=== PATIENT | female | born 2000 | race Caucasian/White ===

== ENCOUNTER 2024-07-19 12:06 | Emergency (ER) | payer OTHER ==
--- NOTE | 2024-07-19 12:21 | ERPHSYRPT ---
- History of Present Illness Time Seen by Provider: 07/19/24 12:21 Source: patient, family Exam Limitations: no limitations Physician History: There is a 24-year-old white female patient who woke up this morning with left eye redness itching and matted material on her eyelids. Patient has no known exposure to viral illnesses. She has not had a fever. She denies pain or injury to that eye. Timing/Duration: today Location: left eye Severity: mild Apparent Injury: no Associated Symptoms: itching, redness, matting, No sensitivity to light, No eyelid swelling, No foreign body sensation, No blurred vision, No double vision Visual Assistive Devices: None Chemical Exposure: No Trauma: No Welding Arc/Tanning Bed Exposure: No Allergies/Adverse Reactions: No Known Drug Allergies Allergy (Unverified 07/19/24 12:15) Travel Risk - International Travel Have you traveled outside of the country in past 3 weeks: No - Emerging Infectious Disease Are you exhibiting symptoms associated with any current EIDs: No - Review of Systems Constitutional: No Symptoms Eyes: Eye Redness (Left side), Itchy (Left eye) Ears, Nose, & Throat: No Symptoms Respiratory: No Symptoms Cardiac: No Symptoms Abdominal/Gastrointestinal: No Symptoms Genitourinary Symptoms: No Symptoms Musculoskeletal: No Symptoms Skin: No Symptoms Neurological: No Symptoms Psychological: No Symptoms Endocrine: No Symptoms Hematologic/Lymphatic: No Symptoms Immunological/Allergic: No Symptoms All Other Systems: Reviewed and Negative - Past Medical History Pertinent Past Medical History: No - Past Surgical History Past Surgical History: No - Nursing Vital Signs Nursing Vital Signs: Initial Vital Signs Temperature 97.6 F 07/19/24 12:19 Pulse Rate 70 07/19/24 12:19 Respiratory Rate 20 07/19/24 12:19 Blood Pressure 99/61 07/19/24 12:19 O2 Sat by Pulse Oximetry 100 07/19/24 12:19 Pain Scale Pain Intensity 0 - Physical Exam General Appearance: no apparent distress, alert, thin Vision Acuity Degree Evaluation Phase: Corrected Vision Acuity Right Eye: 20/30 Vision Acuity Left Eye: 20/30 Eye Exam: right eye: normal inspection, left eye: conjunctival inflammation, bilateral eye: PERRL, EOMI Ears, Nose, Throat Exam: normal ENT inspection, moist mucous membranes Neck Exam: normal inspection, non-tender, supple, full range of motion Respiratory Exam: airway intact, No chest tenderness, No respiratory distress Gastrointestinal Exam: No tenderness Extremity Exam: normal inspection, normal range of motion, pelvis stable Neurologic: alert, oriented x 3, cooperative, respiratory director II-XII nml as tested, normal mood/affect, nml cerebellar function, nml station & gait, sensation nml Skin Exam: normal color, warm, dry Lymphatic: No adenopathy SpO2 Interpretation: normal O2 Delivery: Room Air - Course Nursing assessment & vital signs reviewed: Yes Ordered Tests: Active Orders 24 hr Category Date Time Status Visual Acuity STAT Care 07/19/24 12:14 Active - Progress Progress: unchanged Progress Note: 07/19/24 12:53 My medical decision making and the assignment of low complexity to this patient's medical issue today is based on review of the patient's past medical history, review of the patient's medication list, review patient drug allergy list, history presence of physical findings on examination. No radiographic or laboratory studies are necessary in the workup of this patient. 07/19/24 12:54 Differential diagnosis includes but is not limited to the left eye injury, left corneal abrasion, left eye conjunctivitis Counseled pt/family regarding: diagnosis, need for follow-up Medical Desision Making - Independent Historian Additional History obtained from: Relative/friend - Diagnostic Testing Diagnostic test were ordered, analyzed, and reviewed by me: No - Risk of complications The pt has a mod risk of morbidity or mortality based on: Need for prescription drug management - Departure Departure Disposition: Home Clinical Impression: Conjunctivitis, left eye Condition: Stable Critical Care Time: No Additional Instructions: Use Tylenol and ibuprofen for any pain or discomfort. Warm compresses to the left eye area in the morning and in the evening. Use your eyedrops as prescribed. Follow-up with your primary care provider on 07/22/2024 for persistent symptoms. If your symptoms worsen, proceed to the emergency department. Prescriptions: Neomycin/Polymyxin B/Dexametha [Ougdwy-Fsggf-Sjkyyflw Eye Drop] 2 drops OP QID #5 ml
[2024-07-19 12:23] VITALS: BP 99/61; TEMP 97.6
[2024-07-19 13:11] VITALS: PULSE 60; RESP 16; O2SAT 99
== END 2024-07-19 13:11 | disposition home or self-care (01) ==
LOC: ED 12:06
DX: H10.9 Unspecified conjunctivitis (principal)
CPT/HCPCS: 99281